=== PATIENT | female | born 1990 | race Caucasian/White ===

== ENCOUNTER 2019-10-05 06:41 | Inpatient (IN) | payer BC, SELFPAY ==
[2019-10-05] VITALS (63 sets, daily range): BP systolic 111–137; BP diastolic 67–112; PULSE 74–125; RESP 16; TEMP 36.2–36.9; O2SAT 100; BMI 31.2
[2019-10-05 07:39] LABS: Basophils Percent Auto 0.3 % (0.2-1.2); Eosinophils Absolute Auto 0.1 K/mm3 (0-0.3); Eosinophils Percent Auto 0.8 % (0-4.4); Hemoglobin 11.4 g/dL (12.0-15.0); Immature Granulocyte Absolute 0.06 K/mm3 (0.00-0.031); Immature Granulocyte Percent A 0.4 % (0-0.5); Lymphocytes Absolute Auto 2.74 K/mm3 (0.9-3.2); Lymphocytes Percent Auto 19.5 % (18.3-44.2); Mean Corpuscular HGB Conc 33.5 g/dl (32-36); Mean Corpuscular Hemoglobin 31.8 pg (26-34); Mean Corpuscular Volume 94.7 fl (80-100); Monocytes Absolute Auto 0.6 K/mm3 (0.1-0.6); Monocytes Percent Auto 4.1 % (2.6-8.5); Neutrophils Absolute Auto 10.5 K/mm3 (1.3-6.7); Neutrophils Percent Auto 74.9 % (45.5-73.1); Platelet Count Result 514 k/mm3 (150-375); Red Blood Count 3.59 M/mm3 (4.2-5.4); Red Cell Distribution Width 13.7 % (11.5-14.5)
--- NOTE | 2019-10-05 07:50 | P.HP_ITS ---
Obstetrics - Admit Note Admission Note: 29 y/o @ 38w1d here for induction of labor d/t chronic hypertension. VSS Contractions irregular FHR category 1 Cervix 1-2/50/-2 Arom attempted. Very scant amount of fluid noted. Epidural as desired Anticipate record reviewed. No pertinent additions to the history and/or any subse quent changes in the physical findings that are not consistent with the expected course of the were found. Additions to the history and/or subsequent changes in the physical findings follow. None.
[2019-10-05] MEDS: OXYTOCIN 30 UNITS/NS 500 ML 30 UNITS/500 ML BAG IV CONT (08:02)
[2019-10-05] MEDS: LACTATED RINGERS 1,000 ML 125 ML IV CONT ×3 (08:02→13:43)
--- NOTE | 2019-10-05 08:19 | LDADM ---
This patient, Nela Og, was admitted to Labor/Delivery/Recovery 103 on 10/05/19 at 06:41. Plans for labor, pain management and were discussed with patient. Patient/family oriented to hospital policies and general routines including ID bracelet, bed and alarms, visiting hours, pain management, procedures, bathroom and other care routines, personal items, smoking policy, room service/diet and guest tray routines, security routines, and visiting hours. Patient/Family are encouraged to report perceived risks to care and to ask questions if they do not understand what they are told or what they should do. See OBIX for further documentation.
--- NOTE | 2019-10-05 09:49 | WPDANESEPP ---
Anes - Eval Pre Procedure Procedure: labor epidural Date/Time: 10/05/19 09:49 Surgeon: ramiro Pre Op Diagnosis: induction of labor Patient Data Age: 29 Gender: F Height: 1.6 m Weight: 80 kg Last Vital Signs Pulse 91 10/05/19 09:46 BP 125/89 10/05/19 09:46 Allergies Allergy/AdvReac Type Severity Reaction Status Date / Time adhesive Allergy Mild Rash Verified 10/04/19 10:37 Home Medications Medication Instructions Recorded Confirmed Type PNV cmb#95-ferrous fumarate-FA 1 tablet PO DAILY 10/04/19 10/04/19 History [] aspirin [Aspirin Low Dose] 81 mg PO DAILY 10/04/19 10/04/19 History ferrous sulfate 325 mg PO DAILY 10/04/19 10/04/19 History sertraline [Zoloft] 50 mg PO HS 10/04/19 10/04/19 History Laboratory Tests 10/05/19 10/05/19 10/05/19 07:25 07:25 07:25 WBC 14.0 K/mm3 H K/mm3 (4.5-10.0) RBC 3.59 M/mm3 L M/mm3 (4.2-5.4) Hgb 11.4 g/dL L g/dL (12.0-15.0) Hct 34.0 % L % (37.0-47.0) MCV 94.7 fl fl (80-100) MCH 31.8 pg pg (26-34) MCHC 33.5 g/dl g/dl (32-36) RDW 13.7 % % (11.5-14.5) Plt Count 514 k/mm3 H k/mm3 (150-375) MPV 9.0 fl fl (7.4-10.4) Immature Gran % (Auto) 0.4 % % (0-0.5) Neut % (Auto) 74.9 % H % (45.5-73.1) Lymph % (Auto) 19.5 % % (18.3-44.2) [place] % (Auto) 4.1 % % (2.6-8.5) Eos % (Auto) 0.8 % % (0-4.4) Baso % (Auto) 0.3 % % (0.2-1.2) Lymph # (Auto) 2.74 K/mm3 K/mm3 (0.9-3.2) [place] # (Auto) 0.6 K/mm3 K/mm3 (0.1-0.6) Eos # (Auto) 0.1 K/mm3 K/mm3 (0-0.3) Baso # (Auto) 0.0 K/mm3 K/mm3 (0.0-0.1) Abs Immat Gran (auto) 0.06 K/mm3 H K/mm3 (0.00-0.031) Absolute Neuts (auto) 10.5 K/mm3 H K/mm3 (1.3-6.7) Absolute Nucleated RBC 0.0 K/mm3 K/mm3 (0.0-0.012) Nucleated RBC % 0.0 % % (0.0-0.2) RPR Pending Blood Type O Positive Antibody Screen Negative Patient hx anesthesia problems: none Family hx anesthesia problems: none PMFSH Past Medical History Medical History (Updated 10/05/19 @ 09:51 by Lorna Lynn CRNA) Anxiety and depression Migraine Obese Family History Family History Father Hypertension Coronary artery disease involving coronary bypass graft Mother SVT (supraventricular tachycardia) Social History Social History Smoking status: Former smoker Second hand tobacco smoke exposure: No Substance use: never Spiritual care concerns: No Exam Day of Procedure 10/05/19 09:49 Patient weight: obese Heart: regular rate and rhythm Lungs: normal air movement Airway: Mallampati scale class II Neurological: alert and oriented
[2019-10-05 11:55] LABS: Rapid Plasma Reagin Non-Reactive (NonReactive)
--- NOTE | 2019-10-05 17:33 | P.PCNOB_ITS ---
OB - Delivery Note Procedure Delivery date: 10/05/19 Intrapartal events: None Induction method: per pitocin protocol Delivery augmentation: rupture of membranes Delivery monitor: external FHT and external uterine Route of delivery: Laceration description: Perineal - 1st Degree Estimated blood loss (mL): 74 Anesthesia type: Epidural [place] Baby Date of : 10/05/19 Time of : 17:12 Weeks of gestation at delivery: 38 presentation: vertex position: Right Occiput Anterior Placenta delivery description: Spontaneous cord vessel description: 3 Vessels, Nuchal Cord, Loose and Reduced Narrative: Mother and baby in stable condition. Cord gasses collected and handed off to staff.
[2019-10-05] MEDS: OXYTOCIN 30 UNITS/NS 500 ML 30 UNITS/500 ML BAG 125 UNITS IV CONT (17:56)
[2019-10-05] MEDS: WITCH HAZEL 40 PADS 1 PAD TOPICAL (19:19)
[2019-10-05] MEDS: BENZOCAINE 20% AER SPR (*SP) 56 GM CAN 1 SPRAY TOPICAL (19:19)
--- NOTE | 2019-10-05 19:40 | OBPPTRN ---
Patient transferred to post room #286 via wheelchair. Support person present. Oriented to unit, room, information board, rooming in, admission packet and security measures. Patient verbalizes understanding. with patient.
[2019-10-05] MEDS: IBUPROFEN 600 MG TABLET PO (20:52)
[2019-10-06 05:26] LABS: Hematocrit 34.8 % (37.0-47.0); Hemoglobin 11.5 g/dL (12.0-15.0)
[2019-10-06] MEDS: MULTIVIT/MIN/PREN/FOL AC/IRON TABLET 1 TAB PO (07:28)
[2019-10-06] MEDS: DOCUSATE SODIUM 100 MG CAPSULE PO ×2 (07:28→16:19)
[2019-10-06] MEDS: LANOLIN (LANSINOH) 7.5 GM CREAM 1 APPLIC TOPICAL (07:29)
[2019-10-06] MEDS: IBUPROFEN 600 MG TABLET PO ×2 (07:29→16:19)
[2019-10-06 07:42] VITALS: BP 123/83; PULSE 79; RESP 18; TEMP 36.4; O2SAT 100
--- NOTE | 2019-10-06 07:47 | P.PNOB_ITS ---
OB - PN: Subj Subjective Date/time seen: 10/06/19 07:47 OB - PN: Obj Data Labs CBC & Chem 7: 10/06/19 04:44 Labs: Laboratory Results - last 24 hr 10/05/19 10/05/19 10/06/19 07:25 07:25 04:44 Hgb 11.5 L Hct 34.8 L RPR Non-reactive Blood Type O Positive Antibody Screen Negative OB - PN A/P Plan day: 1 Plan: discharge home Time Spent With Patient Time: Total time spent is greater than 50% in coordination of care (as doc umented) at patient's floor/unit and/or counseling patient: Review of Systems Review of Systems: All systems reviewed & are unremarkable except as noted in HPI and below Cardiovascular: Cardiovascular: Reports as per HPI Exam Const: General: comfortable Resp: Effort & Inspection: normal respiratory effort
--- NOTE | 2019-10-06 08:03 | P.PCN_ITS ---
OB [place] - Circumcision Consent: Potential risks, benefits, and alternatives have been discussed and questions answered. Family agrees to proceed with circumcision. Preoperative Diagnosis: Normal Foreskin. Postoperative Diagnosis: Normal Foreskin. Date of Circumcision: 10/06/19 Time of Circumcision: 07:55 Type of Circumcision: GOMCO with 1.1 Anesthesia: Dorsal Nerve Block (1% Lidocaine without Epi) Foreskin: The foreskin was examined and found to be grossly normal. Estimated Blood Loss: Minimal Comment/Other findings: No hypospadias. Tolerated well
--- NOTE | 2019-10-06 13:40 | PC.NURSE ---
Consult with pt., mother verbalizes she is able to independently latch infant with appropriate positioning/alignment. She denies any nipple discomfort, is feeding as required and waking infant to feed if needed. is currently meeting outcomes for weight, output, jaundice and feeding frequencies. Mother states she does not require feeding assist/education at this time. Reviewed resources in the Mom/Baby guide. Instructed mother to call out for future feedings if assistance is needed.
--- NOTE | 2019-10-06 14:00 | PC.NURSE ---
Patient was given the opportunity to view the discharge video Mother & Baby Care, The First Two Weeks and to ask questions. Patient declined viewing the video and has been given the mother/baby guide for home reference.
[2019-10-06] MEDS: WITCH HAZEL 40 PADS 1 PAD TOPICAL (16:19)
[2019-10-06] MEDS: BENZOCAINE 20% AER SPR (*SP) 56 GM CAN 1 SPRAY TOPICAL (16:19)
[2019-10-07 10:14] VITALS: BP 128/83; PULSE 81; RESP 20; TEMP 36.2
--- NOTE | 2019-10-18 15:39 | PM.OBDSVD ---
DS: Admitting Diagnosis Admitting Diagnosis Admitting Diagnosis: Encounter for supervision of normal , unspecified, third trimester DS: Discharge Diagnosis Discharge Diagnosis (1) Vaginal delivery: Code(s): O80 - Encounter for full-term uncomplicated delivery Status: Acute OB - DS: Summary OB Procedures : None OB Procedures Intrapartum: Spontaneous Vag Delivery OB Procedures: : None Time Spent with Patient Time attestation: Total time spent providing and/or coordinating discharge services: Discharge Plan Discharge Consulting providers: Lavern Cervantes ; Prema Barksdale Discharging Clinician: Prema Barksdale Patient Disposition: Home, Self-Care Activity: pelvic rest Diet: regular Discharge Instructions: Education: Mom and Baby Guide Given to: Mother Follow-Up: Call your delivering provider's office for an appointment to be seen in: 4 Weeks Mom and baby should come to the [facility] for the follow-up appointment. Appointment Date/Time:Monday, October 07, 2019 at 10:00 am What to expect at your follow-up visit: Blood Pressure Check Physical Assessment Call [phone] if you are unable to keep your appointment time. BREAST CARE: 1. Wear a snug supportive bra. 2. For engorgement discomfort: Breast Feeding: A. Apply warm moist washcloths B. Express milk as needed to relieve engorgement C. Wear loose clothing 3. For sore nipples: A. Identify correct latch-on B. Apply warm moist washcloths before and after nursing C. Air dry nipples after nursing D. May apply Lansinoh cream to nipples EPISIOTOMY/PERINEAL CARE: 1. Until bleeding stops, use your brii bottle after urinating 2. Change your pad frequently throughout the day 3. You may take sitz baths several times a day (fill your bathtub with warm water and soak for 20 minutes.) Do NOT bathe in the water 4. No tub baths until seen by your physician - You may shower ACTIVITY: 1. Rest as much as possible. 2. Do not exercise or lift anything heavier than your baby (such as laundry or other children.) 3. Avoid stairs or driving as much as possible. 4. Do not put anything into the vagina. No douching, tampons, or sexual activity until seen by physician. NOTIFY PHYSICIAN IF YOU HAVE ANY QUESTIONS OR IF ANY OF THE FOLLOWING SYMPTOMS OCCUR: 1. If your episiotomy or incision becomes red, swollen, or more painful than what you have experienced in the hospital. 2. If your vaginal bleeding becomes foul smelling. 3. If your vaginal bleeding becomes more heavy than a period or if your bleeding changes from pink to bright red. However, you may pass an occasional walnut-sized clot once or twice for the first week . 4. If you experience a sharp, shooting pain in you calves. 5. If you discover a hard, reddened area on your breast or if you experience flu-like symptoms. DIET: 1. Eat regular, well-balanced meals. 2. Drink plenty of fluids daily. If , drink to thirst. Patient Instructions: Antibiotic Form Stand Alone Forms: General Discharge Information Follow-up/Referrals: Prema Barksdale CNM [Certified Nurse Controlled Area Checker] - 4 Weeks Discharge Medications: Continued sertraline [Zoloft] 50 mg Tablet 50 mg PO HS RF: 0 PNV cmb#95-ferrous fumarate-FA [] 28 mg iron- 800 mcg Tablet 1 tablet PO DAILY RF: 0 Discontinued aspirin [Aspirin Low Dose] 81 mg Tablet,Delayed Release (Dr/Ec) 81 mg PO DAILY RF: 0 ferrous sulfate 325 mg (65 mg iron) Tablet 325 mg PO DAILY RF: 0 No Action labetalol 100 mg Tablet 100 mg PO Q12H 30 Days Qty: 60 RF: 0 Date of admission: 10/05/19 06:41 Primary Care Provider: PHYSICIAN,SUPERVISOR NUTRITIONAL YEAST Admitting Provider: Gloria Ellis Discharge Date/Time: 10/06/19 18:55 Attending physician on admission: Gloria Ellis
== END 2019-10-06 18:55 | disposition home or self-care (01) | DRG 807 ==
LOC: ANHLDR 06:44 → ANHOB2 19:45
PROVIDERS: Advanced Practice Midwife; Admitting Provider Obstetrics & Gynecology; Visit Provider Obstetrics & Gynecology
DX: O10.92 Unspecified pre-existing hypertension complicating childbirth (principal); Z37.0 Single live birth; Z3A.38 38 weeks gestation of pregnancy; O70.0 First degree perineal laceration during delivery; O69.81X0 Labor and delivery complicated by cord around neck, without compression, not applicable or unspecified; O99.214 Obesity complicating childbirth; E66.9 Obesity, unspecified; O99.344 Other mental disorders complicating childbirth; F41.8 Other specified anxiety disorders
CPT/HCPCS: 36415; 85014; 85018; 85025; 86592; 86850; 86900; 86901; A9270; J2590; J2795; J7120

== ENCOUNTER 2019-10-09 09:27 | Outpatient (CLI) | payer BC, SELFPAY ==
[2019-10-09] VITALS (7 sets, daily range): BP systolic 133–143; BP diastolic 87–94; PULSE 83–103
[2019-10-09 09:58] LABS: Basophils Percent Auto 0.3 % (0.2-1.2); Eosinophils Absolute Auto 0.3 K/mm3 (0-0.3); Eosinophils Percent Auto 2.4 % (0-4.4); Hematocrit 36.2 % (37.0-47.0); Hemoglobin 12.1 g/dL (12.0-15.0); Immature Granulocyte Absolute 0.03 K/mm3 (0.00-0.031); Immature Granulocyte Percent A 0.3 % (0-0.5); Mean Corpuscular HGB Conc 33.4 g/dl (32-36); Mean Corpuscular Volume 95.8 fl (80-100); Mean Platelet Volume 8.8 fl (7.4-10.4); Monocytes Absolute Auto 0.5 K/mm3 (0.1-0.6); Monocytes Percent Auto 4.8 % (2.6-8.5); Neutrophils Absolute Auto 7.9 K/mm3 (1.3-6.7); Neutrophils Percent Auto 72.2 % (45.5-73.1); Platelet Count Result 526 k/mm3 (150-375); Red Blood Count 3.78 M/mm3 (4.2-5.4); Red Cell Distribution Width 13.3 % (11.5-14.5)
[2019-10-09 10:26] LABS: Alanine Aminotransferase 16 U/L (4-35); Albumin Level 3.6 g/dL (3.5-5.1); Alkaline Phosphatase 111 U/L (38-126); Aspartate Amino Transferase 25 U/L (14-36); Bilirubin,Total < 0.1 mg/dL (0.2-1.3); Blood Urea Nitrogen 6 mg/dL (7-17); Calcium 9.5 mg/dL (8.4-10.2); Carbon Dioxide 29 mmol/L (22-30); Chloride 105 mmol/L (98-107); Estimated Glomerular Filt Rate > 60; Glucose 93 mg/dL (65-105); Potassium 3.7 mmol/L (3.4-5.0); Sodium 137 mmol/L (137-145); Uric Acid 4.3 mg/dL (2.5-7.5)
--- NOTE | 2019-10-09 12:15 | PC.NURSE ---
Ej Cervantes notified of Lab results and BP's Ok to dc home with precautions.
== END 2019-10-09 11:30 | disposition home or self-care (01) ==
LOC: ANHOBOP 09:32 → ANHOBPP 09:32
PROVIDERS: Advanced Practice Midwife; Visit Provider Obstetrics & Gynecology
DX: O13.9 Gestational [pregnancy-induced] hypertension without significant proteinuria, unspecified trimester (principal)
CPT/HCPCS: 36415; 80053; 84550; 85025; 99199

== ENCOUNTER 2019-10-11 11:28 | Outpatient (CLI) | payer BC, SELFPAY ==
[2019-10-11] VITALS (28 sets, daily range): BP systolic 123–148; BP diastolic 71–100; PULSE 72–99; RESP 16; TEMP 36.7–36.9; O2SAT 95–100
[2019-10-11 12:18] LABS: Basophils Absolute Auto 0.1 K/mm3 (0.0-0.1); Basophils Percent Auto 0.6 % (0.2-1.2); Eosinophils Absolute Auto 0.2 K/mm3 (0-0.3); Eosinophils Percent Auto 1.8 % (0-4.4); Hematocrit 37.2 % (37.0-47.0); Hemoglobin 12.3 g/dL (12.0-15.0); Immature Granulocyte Absolute 0.04 K/mm3 (0.00-0.031); Immature Granulocyte Percent A 0.4 % (0-0.5); Lymphocytes Absolute Auto 2.66 K/mm3 (0.9-3.2); Lymphocytes Percent Auto 25.2 % (18.3-44.2); Mean Corpuscular HGB Conc 33.1 g/dl (32-36); Mean Corpuscular Hemoglobin 31.5 pg (26-34); Mean Corpuscular Volume 95.1 fl (80-100); Mean Platelet Volume 8.6 fl (7.4-10.4); Monocytes Absolute Auto 0.7 K/mm3 (0.1-0.6); Monocytes Percent Auto 6.7 % (2.6-8.5); Neutrophils Absolute Auto 6.9 K/mm3 (1.3-6.7); Neutrophils Percent Auto 65.3 % (45.5-73.1); Platelet Count Result 515 k/mm3 (150-375); Red Blood Count 3.91 M/mm3 (4.2-5.4); Red Cell Distribution Width 13.3 % (11.5-14.5); White Blood Count 10.6 K/mm3 (4.5-10.0)
[2019-10-11 12:33] LABS: Alanine Aminotransferase 21 U/L (4-35); Albumin Level 3.9 g/dL (3.5-5.1); Alkaline Phosphatase 109 U/L (38-126); Aspartate Amino Transferase 28 U/L (14-36); Bilirubin,Total 0.3 mg/dL (0.2-1.3); Blood Urea Nitrogen 9 mg/dL (7-17); Calcium 9.4 mg/dL (8.4-10.2); Carbon Dioxide 28 mmol/L (22-30); Chloride 105 mmol/L (98-107); Estimated Glomerular Filt Rate > 60; Glucose 77 mg/dL (65-105); Potassium 3.9 mmol/L (3.4-5.0); Sodium 138 mmol/L (137-145); Uric Acid 5.2 mg/dL (2.5-7.5)
--- NOTE | 2019-10-11 13:10 | PC.NURSE ---
Bree Cervantes CNM on unit and reviewed BP's and lab results. CNM in to talk with pt. ALBERTO will consult with Dr. Villa on plan of care.
[2019-10-11] MEDS: LABETALOL HCL 100 MG TABLET PO (13:49)
--- NOTE | 2019-10-11 17:20 | PC.NURSE ---
Bree Cervantes CNM returned page and updated on BP's. Informed pt's headache has resolved. Pt hoping to go home. Orders for discharge received.
== END 2019-10-11 17:42 | disposition home or self-care (01) ==
LOC: ANHOBOP 11:34 → ANHOBPP 11:38
PROVIDERS: Advanced Practice Midwife; Visit Provider Obstetrics & Gynecology
DX: O13.5 Gestational [pregnancy-induced] hypertension without significant proteinuria, complicating the puerperium (principal)
CPT/HCPCS: 36415; 80053; 84550; 85025; 99199; A9270

== ENCOUNTER 2022-09-12 00:01 | Inpatient (IN) | payer BC, SELFPAY ==
[2022-09-12] VITALS (145 sets, daily range): BP systolic 97–140; BP diastolic 49–91; PULSE 80–129; RESP 14–16; TEMP 36.3–36.8; O2SAT 96–100; BMI 30.4
--- NOTE | 2022-09-12 00:31 | LDADM ---
This patient, Nela Og, was admitted to Labor/Delivery/Recovery 107 on 09/12/22 at 00:01. Plans for labor, pain management and were discussed with patient. Patient/family oriented to hospital policies and general routines including ID bracelet, bed and alarms, visiting hours, pain management, procedures, bathroom and other care routines, personal items, smoking policy, room service/diet and guest tray routines, security routines, and visiting hours. Patient/Family are encouraged to report perceived risks to care and to ask questions if they do not understand what they are told or what they should do. See OBIX for further documentation.
[2022-09-12 00:42] LABS: Basophils Percent Auto 0.2 % (0.2-1.2); Eosinophils Absolute Auto 0.2 K/mm3 (0-0.3); Eosinophils Percent Auto 1.4 % (0-4.4); Hematocrit 33.6 % (37.0-47.0); Hemoglobin 11.3 g/dL (12.0-15.0); Immature Granulocyte Percent A 0.6 % (0-0.5); Lymphocytes Absolute Auto 3.15 K/mm3 (0.9-3.2); Lymphocytes Percent Auto 19.1 % (18.3-44.2); Mean Corpuscular HGB Conc 33.6 g/dl (32-36); Mean Corpuscular Volume 95.2 fl (80-100); Mean Platelet Volume 8.7 fl (7.4-10.4); Monocytes Absolute Auto 1.4 K/mm3 (0.1-0.6); Monocytes Percent Auto 8.5 % (2.6-8.5); Neutrophils Absolute Auto 11.6 K/mm3 (1.3-6.7); Neutrophils Percent Auto 70.2 % (45.5-73.1); Platelet Count Result 555 k/mm3 (150-375); Red Blood Count 3.53 M/mm3 (4.2-5.4); Red Cell Distribution Width 13.9 % (11.5-14.5); White Blood Count 16.5 K/mm3 (4.5-10.0)
[2022-09-12] MEDS: OXYTOCIN 30 UNITS/NS 500 ML 30 UNITS/500 ML BAG IV CONT (01:08)
[2022-09-12] MEDS: LACTATED RINGERS 1,000 ML 125 ML IV CONT ×3 (01:09→17:59)
[2022-09-12 04:13] LABS: Alanine Aminotransferase 21 U/L (6-35); Albumin Level 3.9 g/dL (3.5-5.1); Alkaline Phosphatase 136 U/L (38-126); Aspartate Amino Transferase 29 U/L (14-36); Bilirubin,Total 0.3 mg/dL (0.2-1.3); Blood Urea Nitrogen 11 mg/dL (7-17); Calcium 8.6 mg/dL (8.4-10.2); Carbon Dioxide 24 mmol/L (22-30); Estimated CRCL calculation 133 ml/min; Estimated Glomerular Filt Rate > 60; Glucose 52 mg/dL (65-110)
[2022-09-12 04:22] LABS: Glucose Point of Care 99 mg/dl (65-105)
[2022-09-12 04:45] LABS: Anion Gap 8 mmol/L (8-16); Chloride 102 mmol/L (98-107); Potassium 3.7 mmol/L (3.4-5.0); Sodium 134 mmol/L (137-145)
--- NOTE | 2022-09-12 07:39 | WPDOBADMIT ---
Obstetrics - Admit Note Admission Note: record reviewed. No pertinent additions to the history and/or any subsequent changes in the physical findings that are not consistent with the expected course of the were found. IOL for chronic HTN at 37wks gestation, currently managed on Norvasc and labetalol. SVE /-2 AROM small amount of clear, odorless fluid, anticipate vaginal delivery Additions to the history and/or subsequent changes in the physical findings follow. None.
--- NOTE | 2022-09-12 13:26 | P.PNOB_ITS ---
OB - PN: Subj Subjective Date/time seen: 09/12/22 13:26 Interval history: call center receptionist call Called due to cord prolapse and patient refusing care from OB back up, Dr. Ellis. When I arrived the tracing was reassuring. Per nurse at her initial exam she felt a hand and cord, while her hand was at cervix elevating head, the hand cord reduced, the skyla resolved. Cervix 6-7/70/-2. I examined her and and agreed with exam. No cord or hand presentation currently. Her primary caregiver, will resume care. OB - PN: Obj Data Labs 09/12/22 00:37 09/12/22 03:43 Labs: Laboratory Results - last 24 hr 09/12/22 09/12/22 09/12/22 00:37 03:43 04:19 WBC 16.5 H RBC 3.53 L Hgb 11.3 L Hct 33.6 L MCV 95.2 MCH 32.0 MCHC 33.6 RDW 13.9 Plt Count 555 H MPV 8.7 Immature Gran % (Auto) 0.6 H Neut % (Auto) 70.2 Lymph % (Auto) 19.1 [place] % (Auto) 8.5 Eos % (Auto) 1.4 Baso % (Auto) 0.2 Lymph # (Auto) 3.15 [place] # (Auto) 1.4 H Eos # (Auto) 0.2 Baso # (Auto) 0.0 Abs Immat Gran (auto) 0.10 H Absolute Neuts (auto) 11.6 H Absolute Nucleated RBC 0.0 Nucleated RBC % 0.0 Sodium 134 L Potassium 3.7 Chloride 102 Carbon Dioxide 24 Anion Gap 8 BUN 11 Creatinine 0.50 L Estim Creat Clear Calc 133 Estimated GFR > 60 Glucose 52 L* POC Capillary Glucose 99 Calcium 8.6 Total Bilirubin 0.3 AST 29 ALT 21 Alkaline Phosphatase 136 H Total Protein 7.0 Albumin 3.9 Blood Type O Positive Antibody Screen Negative OB - PN A/P Time Spent With Patient Time: Total time spent is greater than 50% in coordination of care (as documented) at patient's floor/unit and/or counseling patient:
--- NOTE | 2022-09-12 14:01 | PM.OBPNLAB ---
Pain Control Date/time seen: 09/12/22 14:01 I was called and notified pt had a hand and possible cord prolapse. I notified Dr. Ellis. FHR at that time still Category 1, at bs pt declined Dr. Ellis as the attending for a possible emergency section. Dr. Burden was notified and Dr. Ellis was called back at that time with the refusal. Dr Burden at bs and cord/hand was able to be reduced. To proceed with assistant athletic trainer delivery. Dr. Burden available in case of emergency
--- NOTE | 2022-09-12 19:10 | PM.OBPRVD ---
OB - Delivery Note Procedure Delivery date: 09/12/22 Procedure: Events: Chronic Hypertension Intrapartal Events: Umbilical Cord Prolapse (resolved) Induction method: AROM and Per Pitocin Protocol Delivery monitor: External FHT and External Uterine Route of delivery: Episiotomy description: None Laceration Description: None Specimen: Yes Quantitative Blood Loss (ml): 75 Anesthesia type: Epidural Disposition: Floor Baby Date of : 09/12/22 Time of : 19:00 Weeks of gestation at delivery: 37 gender: Male presentation: compound (left arm) position: Left Occiput Anterior Placenta delivery description: Spontaneous Cord Vessel Description: 3 Vessels and Clamped/Cut Narrative: baby to warmer for evaluation
[2022-09-12] MEDS: OXYTOCIN 30 UNITS/NS 500 ML 30 UNITS/500 ML BAG 125 UNITS IV CONT (19:22)
[2022-09-12] MEDS: WITCH HAZEL 40 PADS 1 PAD TOPICAL (21:30)
[2022-09-12] MEDS: BENZOCAINE 20% AER SPR (*SP) 56 GM CAN 1 SPRAY TOPICAL (21:30)
[2022-09-12] MEDS: IBUPROFEN 600 MG TABLET PO (23:58)
[2022-09-13 01:10] VITALS: BP 111/72; PULSE 80; RESP 16; TEMP 36.7
[2022-09-13 05:14] LABS: Hemoglobin 10.6 g/dL (12.0-15.0)
[2022-09-13] MEDS: IBUPROFEN 600 MG TABLET PO ×2 (07:15→17:09)
[2022-09-13] MEDS: DOCUSATE SODIUM 100 MG CAPSULE PO ×2 (07:15→17:09)
--- NOTE | 2022-09-13 08:24 | WPDANLDPN2 ---
Anes-Prog Note L&D Date/Time: 09/13/22 08:24 Comfortable throughout: labor and delivery Neuraxial method: epidural Epidural/Spinal procedure site: clean & non-tender Neuro status: Neuro function grossly intact. Cardiovascular status: normal Respiratory status: normal Airway patency: baseline Mental status: baseline Post-Op hydration status: normal Vital Signs: Last Vital Signs Temp 36.7 C 09/13/22 01:10 Pulse 80 09/13/22 01:10 Resp 16 09/13/22 01:10 BP 111/72 09/13/22 01:10 Pulse Ox 99 09/12/22 20:49 O2 Del Method Room Air 09/12/22 00:29 Pain score (VAS): 05/19 I/O: Intake & Output 09/12/22 09/13/22 09/13/22 23:59 07:59 15:59 Intake Total 3000 Output Total 235 Balance 2765 Post-procedural complaints: none Patient feedback: Patient satisfied with anesthetic care.
[2022-09-13 09:00] VITALS: PULSE 88
[2022-09-13] MEDS: LABETALOL HCL 50 MG TABLET PO (09:00)
[2022-09-13] MEDS: MULTIVIT/MIN/PREN/FOL AC/IRON TABLET 1 TAB PO (09:00)
--- NOTE | 2022-09-13 09:05 | PM.OBPNVD ---
OB - PN: Subj Subjective Date/time seen: 09/13/22 09:05 s/p vaginal delivery day 1, doing well, breast feeding, no complaints OB - PN: Obj Data Labs 09/13/22 04:11 09/12/22 03:43 Labs: Laboratory Results - last 24 hr 09/13/22 04:11 Hgb 10.6 L Hct 33.0 L OB - PN A/P Plan day: 1 Plan: routine care Time Spent With Patient Time: Total time spent is greater than 50% in coordination of care (as documented) at patient's floor/unit and/or counseling patient: Review of Systems Review of Systems: All systems reviewed & are unremarkable except as noted in HPI and below Exam Const: General: cooperative and healthy appearing
[2022-09-13 09:49] VITALS: BP 110/68; PULSE 80; PULSE 88; RESP 16; RESP 18; TEMP 36.2; O2SAT 99
[2022-09-13 17:05] VITALS: BP 118/78; PULSE 84; RESP 14; TEMP 36.4; O2SAT 100
[2022-09-13 21:10] VITALS: BP 116/76; PULSE 79; RESP 16; TEMP 36.4; O2SAT 99
--- NOTE | 2022-09-14 07:26 | PM.OBPNVD ---
OB - PN: Subj Subjective Date/time seen: 09/14/22 07:26 S/p vaginal delivery day 2 OB - PN: Obj Data Labs 09/13/22 04:11 09/12/22 03:43 OB - PN A/P Plan day: 2 Time Spent With Patient Time: Total time spent is greater than 50% in coordination of care (as documented) at patient's floor/unit and/or counseling patient: Review of Systems Review of Systems: All systems reviewed & are unremarkable except as noted in HPI and below Exam Const: General: cooperative and healthy appearing Chest: Chest palpation & inspection: normal inspection of the chest Resp: Effort & Inspection: normal respiratory effort GI: Inspection: normal to inspection Skin: General skin exam: normal color Extrem: Right lower extremity: normal to inspection Left lower extremity: normal to inspection Psych: Appearance: grossly normal
--- NOTE | 2022-09-14 07:31 | PM.OBDSVD ---
DS: Admitting Diagnosis Discharge Date 09/14/22 Admitting Diagnosis IOL DS: Discharge Diagnosis Discharge Diagnosis (1) Vaginal delivery: Code(s): O80 - Encounter for full-term uncomplicated delivery Status: Acute OB - DS: Summary OB Procedures : None OB Procedures Intrapartum: Spontaneous Vag Delivery OB Procedures: : None Time Spent with Patient Time attestation: Total time spent providing and/or coordinating discharge services: DS: Data Data Completed and Pending Pending studies at discharge: Pending at discharge 09/12/22 19:03 Surgical [PTH] Routine Discharge Plan Discharge Attending physician on discharge: Gloria Ellis Discharging Clinician: Prema Barksdale Patient Disposition: Home, Self-Care Activity: pelvic rest Diet: regular Patient Instructions: Antibiotic Form Stand Alone Forms: General Discharge Information Follow-up/Referrals: Prema Barksdale, CNM [Certified Nurse Director Security Risk Management] - 4 Weeks Discharge Medications: Continued PNV cmb#95-ferrous fumarate-FA [] 28 mg iron- 800 mcg Tablet 1 tablet PO DAILY amlodipine [Norvasc] 5 mg Tablet 5 mg PO DAILY ferrous sulfate 134 mg (27 mg iron) Tablet 134 mg PO DAILY escitalopram oxalate [Lexapro] 10 mg Tablet 10 mg PO DAILY labetalol 100 mg tablet 50 mg PO DAILY Rx Instructions: Check BP prior to taking medicine and hold that dose if BP is < 130/70 or pulse is <50. Discontinued Low-Dose Aspirin 81 mg Tablet 162 mg PO DAILY Date of admission: 09/12/22 00:01 Primary Care Provider: PHYSICIAN,ROOM SERVICE FOOD SERVER Admitting Provider: Gloria Ellis Attending physician on admission: Gloria Ellis Condition: Stable
[2022-09-14 08:10] VITALS: BP 125/86; PULSE 90; RESP 16; TEMP 36.9; O2SAT 100
[2022-09-14] MEDS: TETANUS,DIPHTHERIA,AC PERTUSSIS ADULT (0.5 ML) BOOSTRIX IM (09:16)
[2022-09-14] MEDS: IBUPROFEN 600 MG TABLET PO (09:17)
[2022-09-14] MEDS: MULTIVIT/MIN/PREN/FOL AC/IRON TABLET 1 TAB PO (09:17)
[2022-09-14] MEDS: DOCUSATE SODIUM 100 MG CAPSULE PO (09:17)
[2022-09-14] MEDS: WITCH HAZEL 40 PADS 1 PAD TOPICAL (09:19)
[2022-09-14 10:05] LABS: Rapid Plasma Reagin Non-Reactive (NonReactive)
--- NOTE | 2022-09-14 12:20 | PC.NURSE ---
[id number] Introductions were made and Mother led the conversation with her experience, plan to feed her so far and her ability to independently latch optimally without discomfort also demonstrating a cradle latch to the left breast. Mother denies pain and states she breastfed her other children for 2 years each. Mother is feeding appropriately for growth of and understands stimulating to eat if needed. has had appropriate feedings in the last 24 hours meets the outcomes for weight, output and jaundice at this time. Mother states she is confident to continue effectively breastfeed her infant at home, when to call for assistance and denies any additional assistance or education at this time. Reinforced understanding of milk production, transition of milk, signs of adequate intake, transition of stool, prevention/relief of engorgement, responsive watching for feeding cues, the different methods of stimulating to breastfeed 2-3 hours after the start of the last feeding, community resources, medication information reviewed per [employer] and when to call a provider using the resource of the mom and baby guide. Mother voiced understanding of the education shared.
[2022-09-16 10:16] VITALS: BP 124/81; PULSE 87; RESP 16; TEMP 36.8; O2SAT 99
== END 2022-09-14 15:46 | disposition home or self-care (01) | DRG 807 ==
LOC: ANHOB2 09-14 15:34 → ANHLDR 09-15 08:40 → ANHOB2 09-15 08:40
PROVIDERS: Advanced Practice Midwife; Obstetrics & Gynecology; Admitting Provider Obstetrics & Gynecology; Visit Provider Obstetrics & Gynecology
DX: O10.92 Unspecified pre-existing hypertension complicating childbirth (principal); Z37.0 Single live birth; Z3A.37 37 weeks gestation of pregnancy; O32.6XX0 Maternal care for compound presentation, not applicable or unspecified; O69.0XX0 Labor and delivery complicated by prolapse of cord, not applicable or unspecified
CPT/HCPCS: 36415; 80053; 82948; 85014; 85018; 85025; 86592; 86850; 86900; 86901; 88307; 90715; A9270; J2274; J2590; J2795; J7120